=== PATIENT | female | born 1985 | race Caucasian/White ===

== ENCOUNTER 2022-07-04 05:11 | Inpatient (IN) | payer BC ==
[2022-07-04] MEDS ORDERED: Sodium Chloride 0.9% 10 ML Syringe FLUSH PRN (05:44)
[2022-07-04] MEDS ORDERED: Methylergonovine 0.2 MG/1 ML Amp IM PRN (05:44)
[2022-07-04] MEDS ORDERED: Lidocaine 1% 50 ML MDV INJECT PRN (05:44)
[2022-07-04] MEDS ORDERED: Tranexamic Acid 1,000 MG in Sodium Chloride 0.9% 100 ML IV PRN (05:44)
[2022-07-04] MEDS ORDERED: Misoprostol 200 MCG Tab PO PRN (05:44)
[2022-07-04] MEDS ORDERED: Sodium Chloride 0.9% 20 ML SDV IV PRN (05:44)
[2022-07-04] MEDS ORDERED: Sodium Chloride 0.9% 2.5 ML Syringe FLUSH PRN (05:44)
[2022-07-04] MEDS ORDERED: Terbutaline 1 MG/ML SDV SUBCUT PRN (05:44)
[2022-07-04] MEDS ORDERED: Butorphanol 1 MG/ML SDV IVPUSH PRN (05:44)
[2022-07-04] MEDS ORDERED: Carboprost Tromethamine 250 MCG/1 ML Amp IM PRN (05:44)
[2022-07-04] MEDS ORDERED: Water For Irrigation,Sterile 1,000 ML Container IRR PRN (05:44)
[2022-07-04] MEDS ORDERED: Ondansetron 4 MG/2 ML SDV IVPUSH PRN (05:44)
[2022-07-04] MEDS ORDERED: Oxytocin/0.9 % Sodium Chloride 30 UNIT/500 ML BAG IV SCH ×2 (05:45)
[2022-07-04] MEDS ORDERED: Sodium Chloride 0.9% 20 ML SDV FLUSH PRN (05:55)
[2022-07-04] MEDS: Lactated Ringers 1,000 ML IV SCH ×2 (06:45→11:55)
[2022-07-04] MEDS ORDERED: ePHEDrine 50 MG/ML SDV IVPUSH PRN ×2 (09:09)
[2022-07-04] MEDS ORDERED: Ropivacaine HCl/PF 400 MG in Premix Bag 1 BAG EPIDUR SCH (09:15)
[2022-07-04] MEDS ORDERED: Phenylephrine HCl In 0.9% NaCl 1 MG/10 ML Vial IVPUSH SCH (09:15)
[2022-07-04] MEDS ORDERED: Lanolin 100% Cream 7 GM Tube TOP PRN (14:31)
[2022-07-04] MEDS ORDERED: Witch Hazel Medicated Pads 40/Jar TOP PRN (14:31)
[2022-07-04] MEDS ORDERED: Docusate Sodium 100 MG Cap PO PRN (14:31)
[2022-07-04] MEDS ORDERED: Acetaminophen 500 MG Tab PO PRN (14:31)
[2022-07-04] MEDS ORDERED: oxyCODONE 5 MG Tab PO PRN (14:31)
[2022-07-04] MEDS ORDERED: Ibuprofen 400 MG Tab PO PRN (14:31)
[2022-07-04] MEDS ORDERED: Benzocaine/Menthol 20%-0.5% Spray 78 GM Cannister TOP PRN (14:31)
[2022-07-04] MEDS ORDERED: Bisacodyl 10 MG Supp RECTAL PRN (14:31)
[2022-07-04] MEDS: Acetaminophen 500 MG Tab PO PRN (17:23)
[2022-07-04] MEDS: Ibuprofen 800 MG Tab PO PRN (22:55)
[2022-07-05] MEDS: Acetaminophen 500 MG Tab PO PRN (10:45)
[2022-07-05] MEDS: Ibuprofen 800 MG Tab PO PRN (13:04)
== END 2022-07-05 13:20 | disposition home or self-care (01) | DRG 560 ==
LOC: MW.OBCHECK 05:11 → MW.OB 05:13 → MW.OBCHECK 05:43 → MW.OB 05:44 → OBSVTOIN 14:12 → MW.OB 18:30
PROVIDERS: ADMIT Obstetrics & Gynecology; ATTEND Obstetrics & Gynecology
PROC: 10E0XZZ Delivery of Products of Conception, External Approach (ICD-10-PCS; principal; 2022-07-04)
PROC: 3E0R3BZ Introduction of Anesthetic Agent into Spinal Canal, Percutaneous Approach (ICD-10-PCS; 2022-07-04)
PROC: 00HU33Z Insertion of Infusion Device into Spinal Canal, Percutaneous Approach (ICD-10-PCS; 2022-07-04)
DX: O66.0 Obstructed labor due to shoulder dystocia (principal); Z3A.39 39 weeks gestation of pregnancy; Z37.0 Single live birth; O99.02 Anemia complicating childbirth; D64.9 Anemia, unspecified; O99.344 Other mental disorders complicating childbirth; F41.9 Anxiety disorder, unspecified; Z20.822 Contact with and (suspected) exposure to COVID-19
CPT/HCPCS: 36415; 51702; 59025; 59409; 82803; 85014; 85018; 85027; 86592; 86850; 86900; 86901; A9270-GY; J2405; J2590; J7120; U0002